=== PATIENT | male | born 1980 | race Caucasian/White ===

== ENCOUNTER 2019-08-16 10:09 | Inpatient (IN) ==
[2019-08-16] MEDS ORDERED: PNEUMOVAX 23 IM ONE (12:30)
[2019-08-16 12:49] LABS: BASO# 0.06 X1000 (0.0-0.2); BASO% 0.6 % (0.0-0.8); EOS# 0.22 X1000 (0.0-0.7); EOS% 2.3 % (0.0-10.0); HEMATOCRIT 40.8 % (42.0-52.0); IMM GRAN# 0.02 X1000 (0.0-0.04); IMM GRAN% 0.2 % (0.0-0.5); LYMPH# 2.28 X1000 (1.2-3.4); LYMPH% 23.8 % (20.5-51.1); MCH 32.2 PG (27-31); MCHC 34.3 g/dL (33-37); MCV 93.8 FL (81-99); MONO# 0.86 X1000 (0.11-0.59); MPV 9.3 FL (7.4-10.4); NEUT# 6.12 X1000 (1.4-6.5); NEUT% 64.1 % (42.2-75.2); PLT 354 X1000 (130-400); RBC 4.35 XMIL (4.7-6.1); RDW 12.5 % (11.5-14.5); WBC 9.56 X1000 (4.8-10.8)
[2019-08-16 13:05] LABS: AGAP 13; ALB/GLOB RATIO 1.3; ALBUMIN 4.2 g/dL (3.5-5.0); ALKALINE PHOSPHATASE 73 U/L (32-122); BUN 8 mg/dL (8-22); CALCIUM 9.5 mg/dL (8.8-10.2); CHLORIDE 94 mmol/L (98-107); COSMO 261; CREATININE 0.7 mg/dL (0.7-1.2); ESTIMATED GFR > 60; GLUCOSE 102 mg/dL (70-104); GOT 13 U/L (10-34); GPT 11 U/L (10-44); SODIUM 131 mmol/L (136-145); TCO2 24 mmol/L (25-35); TOTAL BILIRUBIN 0.61 mg/dL (0.20-1.00); TOTAL PROTEIN 7.5 g/dL (6.3-8.3)
[2019-08-16] MEDS ORDERED: ZOFRAN IV PRN (13:12)
[2019-08-16] MEDS ORDERED: STERILE WATER INJ. ONE (13:43)
[2019-08-16] MEDS: PROTONIX IV SCH ×2 (14:46→15:12)
[2019-08-16] MEDS: SODIUM CHLORIDE 0.9% INJ SCH ×2 (14:47→15:12)
--- NOTE | 2019-08-16 15:04 | Diag Imaging Result Doc PS360 ---
HIDA SCAN W/ EJECTION FRACTION - 08/16/2019 INDICATION: ruq pain COMPARISON: Ultrasound from 08/15/2019 FINDINGS: 5.5 millicuries of Choletec was administered. There is normal uptake and clearance by the liver. There is normal excretion into the gallbladder and small bowel. A fatty meal was given. The gallbladder ejection fraction is 66%. IMPRESSION: Negative exam. An abnormally low ejection fraction (less than 35%) can be present in patients without gallbladder dyskinesis or chronic cholelithiasis to have other medical conditions. These include but are not limited to, patients with diabetic mellitus, irritable bowel syndrome, , gastroenteritis. peptic ulcer disease, and patients receiving morphine or nifedipine. Electronically signed by Albert Nails 08/16/2019 3:02 PM
[2019-08-16] MEDS: KEFZOL 1 GM/D5W 1 GM/50 ML IVPB IV SCH ×3 (15:12→23:22)
--- NOTE | 2019-08-16 15:17 | Diag Imaging Result Doc PS360 ---
EXAM: CHEST-PORTABLE - 08/16/2019 HISTORY: abdominal pain TECHNIQUE: Portable chest COMPARISON: None. FINDINGS: Heart size is normal. There are apparent mild COPD changes. There is a right lower lung granuloma from old granulomatous disease. The lungs appear to be clear of acute changes. There is no pleural effusion or pneumothorax identified. There is thoracic levoscoliosis noted. IMPRESSION: Apparent mild COPD changes. No evidence of acute disease. Electronically signed by Thien [employer] 08/16/2019 3:15 PM
[2019-08-16] MEDS: D5 1/2 NS 1,000 ML IV SCH (15:34)
[2019-08-16] MEDS: NICODERM PATCH TD SCH (15:35)
[2019-08-16] MEDS: MORPHINE IV PRN ×4 (15:38→23:12)
[2019-08-17] MEDS: MORPHINE IV PRN ×6 (01:41→23:01)
[2019-08-17] MEDS: D5 1/2 NS 1,000 ML IV SCH (01:44)
[2019-08-17] MEDS: KEFZOL 1 GM/D5W 1 GM/50 ML IVPB IV SCH ×3 (06:02→23:07)
[2019-08-17] MEDS ORDERED: QUELICIN (DOSE) ONE (06:31)
[2019-08-17] MEDS: NICODERM PATCH TD SCH (08:26)
[2019-08-17] MEDS ORDERED: VERSED ONE (11:23)
[2019-08-17] MEDS ORDERED: SODIUM CHLORIDE 0.9% ONE (11:41)
[2019-08-17] MEDS ORDERED: MARCAINE 0.25% PF/EPI 1:200,000 ONE (11:41)
[2019-08-17] MEDS ORDERED: LR 1,000 ML ONE (11:42)
[2019-08-17] MEDS ORDERED: ZOFRAN IV PRN (13:24)
[2019-08-17] MEDS ORDERED: D5 1/2 NS 1,000 ML IV SCH (14:00)
--- NOTE | 2019-08-17 14:04 | OPERATIVE NOTE ---
PROCEDURE DATE: 08/17/2019 PREOPERATIVE DIAGNOSES: Acute abdomen and possible acute cholecystitis. POSTOPERATIVE DIAGNOSES: Acute abdomen with anterior perforated duodenal ulcer. PROCEDURE: Laparoscopy with laparotomy with over-sew perforated duodenal ulcer with Félix patch. PROCEDURE: The patient was brought to the operating room. After satisfactory induction of IV and endotracheal anesthesia, athrombic TEDs were placed. His abdomen was broadly prepped and draped in the appropriate manner for laparoscopy. Initially, the infraumbilical area was infiltrated with 0.25% Marcaine with epinephrine. Dissection was taken sharply down through skin and subcutaneous tissue. Fascia was tacked with 0 Surgilon and incised. Under direct visualization, a Primitivo trocar was placed. The abdomen was insufflated to 3-1/2 L of carbon dioxide. Again, after infiltration with Marcaine and epinephrine, one 10 and two 5 mm trocars were placed across the right epigastrium. Inspection revealed a little bit of purulence around the gallbladder itself with omental adhesions. On freeing up these adhesions, there was seen to be a small anterior perforation of the duodenum. Attempts at laparoscopic suture placement for over-sew of the ulcer were unsuccessful. For this reason, the laparoscopy was completed. The trocars were removed. A subxiphoid to umbilical incision midline incision was taken sharply down through skin and subcutaneous tissue. Fascia was incised in the midline. The peritoneum was entered. The viscera were packed away. Where the gallbladder had been grabbed, there was no evidence of full- thickness perforation of the gallbladder itself. The ulcer itself was isolated and over sewed with interrupted 0 Surgilon with tacking down of a piece of freed up omentum for a Félix patch. On completion, there was no evidence of further leakage. The wound was subsequently aspirated away and after accounting for all laparotomy sponges, closure was initiated. The infraumbilical incision underwent fascial closures of 0 Surgilon. The midline incision underwent peritoneal closure with #1 Vicryl, the fascia closure with interrupted #1 Maxon. The layers were irrigated with Betadine on exiting the abdomen. The skin incisions were closed with stainless steel clips. Sterile dressings were applied. Nasogastric tube had been palpated in the stomach prior to closure. Estimated blood loss was approximately 25 mL. Patient will be maintained in the hospital with nasogastric suction with planned fluoroscopy studies to rule out leak in 4 days' time. cc: Iisdro Driscoll MD
[2019-08-17] MEDS: SODIUM CHLORIDE 0.9% INJ SCH (14:50)
[2019-08-17] MEDS: PROTONIX IV SCH (14:50)
[2019-08-17] MEDS: ATIVAN IV PRN (20:29)
[2019-08-17] MEDS: PERIDEX MT SCH (20:35)
[2019-08-18] MEDS: D5 1/2 NS 1,000 ML IV SCH ×6 (00:31→20:35)
[2019-08-18] MEDS: SODIUM CHLORIDE 0.9% INJ SCH ×2 (00:33→18:17)
[2019-08-18] MEDS: PROTONIX IV SCH ×2 (00:34→18:17)
[2019-08-18] MEDS: MORPHINE IV PRN ×4 (02:12→20:47)
[2019-08-18] MEDS: ATIVAN IV PRN ×3 (02:12→18:18)
[2019-08-18] MEDS: KEFZOL 1 GM/D5W 1 GM/50 ML IVPB IV SCH (06:22)
[2019-08-18 06:44] LABS: BASO# 0.01 X1000 (0.0-0.2); BASO% 0.1 % (0.0-0.8); HEMATOCRIT 37.6 % (42.0-52.0); HEMOGLOBIN 12.8 g/dL (14.0-18.0); IMM GRAN# 0.02 X1000 (0.0-0.04); IMM GRAN% 0.2 % (0.0-0.5); LYMPH# 2.29 X1000 (1.2-3.4); LYMPH% 23.5 % (20.5-51.1); MONO# 1.15 X1000 (0.11-0.59); MONO% 11.8 % (1.7-9.3); MPV 9.1 FL (7.4-10.4); NEUT# 6.19 X1000 (1.4-6.5); NEUT% 63.4 % (42.2-75.2); PLT 354 X1000 (130-400); RDW 12.3 % (11.5-14.5); WBC 9.76 X1000 (4.8-10.8)
[2019-08-18 07:16] LABS: AGAP 12; BUN 9 mg/dL (8-22); CALCIUM 9.6 mg/dL (8.8-10.2); CHLORIDE 98 mmol/L (98-107); COSMO 272; CREATININE 0.7 mg/dL (0.7-1.2); ESTIMATED GFR > 60; GLUCOSE 97 mg/dL (70-104); POTASSIUM 3.7 mmol/L (3.5-5.1); SODIUM 137 mmol/L (136-145); TCO2 27 mmol/L (25-35)
[2019-08-18] MEDS: PERIDEX MT SCH ×2 (10:46→20:34)
[2019-08-18] MEDS: NICODERM PATCH TD SCH (10:46)
--- NOTE | 2019-08-18 15:50 | Diag Imaging Result Doc PS360 ---
EXAM: CHEST-PORTABLE HISTORY: NG TUBE re-placement TECHNIQUE: Chest abdomen single view COMPARISON: 08/16/2019 FINDINGS: The lungs are well expanded. The heart is not enlarged. The vessels are not distended. There are no infiltrates. No effusion identified. There is a nasogastric tube in good position overlying the esophagus and stomach. IMPRESSION: Nasogastric tube in good position. Electronically signed by Hermelindo Kumar 08/18/2019 3:47 PM
[2019-08-19] MEDS: MORPHINE IV PRN ×8 (00:19→23:41)
[2019-08-19] MEDS: ATIVAN IV PRN ×4 (00:19→23:41)
[2019-08-19] MEDS: D5 1/2 NS 1,000 ML IV SCH ×4 (00:25→23:45)
[2019-08-19 07:06] LABS: BASO# 0.02 X1000 (0.0-0.2); BASO% 0.2 % (0.0-0.8); EOS# 0.22 X1000 (0.0-0.7); EOS% 2.3 % (0.0-10.0); HEMATOCRIT 43.2 % (42.0-52.0); HEMOGLOBIN 14.9 g/dL (14.0-18.0); LYMPH# 1.14 X1000 (1.2-3.4); LYMPH% 12.1 % (20.5-51.1); MCH 32.7 PG (27-31); MCHC 34.5 g/dL (33-37); MCV 94.7 FL (81-99); MONO# 1.04 X1000 (0.11-0.59); MPV 9.3 FL (7.4-10.4); NEUT% 74.4 % (42.2-75.2); PLT 389 X1000 (130-400); RBC 4.56 XMIL (4.7-6.1); RDW 12.7 % (11.5-14.5); WBC 9.42 X1000 (4.8-10.8)
[2019-08-19 07:32] LABS: AGAP 16; BUN 20 mg/dL (8-22); CALCIUM 10.4 mg/dL (8.8-10.2); CHLORIDE 92 mmol/L (98-107); COSMO 275; CREATININE 0.9 mg/dL (0.7-1.2); ESTIMATED GFR > 60; GLUCOSE 103 mg/dL (70-104); POTASSIUM 3.2 mmol/L (3.5-5.1); SODIUM 136 mmol/L (136-145); TCO2 28 mmol/L (25-35)
[2019-08-19] MEDS: NICODERM PATCH TD SCH (09:05)
[2019-08-19] MEDS: PERIDEX MT SCH ×4 (09:05→21:19)
--- NOTE | 2019-08-19 10:12 | Diag Imaging Result Doc PS360 ---
EXAM: CHEST-PORTABLE - 08/19/2019 HISTORY: post op TECHNIQUE: Portable chest COMPARISON: 08/18/2019 FINDINGS: Heart size is normal. There are stable right lower lung granuloma from old granulomatous disease. The lungs otherwise appear clear. There is no pleural effusion or pneumothorax identified. There is a nasogastric tube which can be followed to the mid stomach. There is a small amount of free intraperitoneal air beneath the hemidiaphragms consistent with recent abdominal surgery. IMPRESSION: No evidence of acute disease. Electronically signed by Thien Hand 08/19/2019 10:09 AM
[2019-08-19] MEDS: SODIUM CHLORIDE 0.9% INJ SCH (14:46)
[2019-08-19] MEDS: PROTONIX IV SCH (14:46)
[2019-08-20] MEDS: MORPHINE IV PRN ×5 (04:44→23:48)
[2019-08-20] MEDS: ATIVAN IV PRN ×2 (05:10→13:12)
[2019-08-20] MEDS: D5 1/2 NS 1,000 ML IV SCH ×3 (07:54→23:41)
[2019-08-20] MEDS: NICODERM PATCH TD SCH (09:38)
[2019-08-20] MEDS: PERIDEX MT SCH ×2 (09:38→23:40)
[2019-08-20] MEDS: PROTONIX IV SCH ×2 (13:13→18:52)
[2019-08-20] MEDS: SODIUM CHLORIDE 0.9% INJ SCH ×2 (13:13→18:52)
[2019-08-21] MEDS: D5 1/2 NS 1,000 ML IV SCH ×2 (01:54→06:56)
[2019-08-21 06:43] LABS: BASO# 0.07 X1000 (0.0-0.2); BASO% 0.5 % (0.0-0.8); EOS# 0.22 X1000 (0.0-0.7); EOS% 1.5 % (0.0-10.0); HEMATOCRIT 45.5 % (42.0-52.0); IMM GRAN# 0.02 X1000 (0.0-0.04); IMM GRAN% 0.1 % (0.0-0.5); LYMPH# 2.64 X1000 (1.2-3.4); LYMPH% 17.8 % (20.5-51.1); MCH 32.1 PG (27-31); MCHC 35.2 g/dL (33-37); MCV 91.4 FL (81-99); MONO# 1.61 X1000 (0.11-0.59); MONO% 10.8 % (1.7-9.3); MPV 9.3 FL (7.4-10.4); NEUT# 10.29 X1000 (1.4-6.5); NEUT% 69.3 % (42.2-75.2); PLT 478 X1000 (130-400); RBC 4.98 XMIL (4.7-6.1); RDW 12.4 % (11.5-14.5); WBC 14.85 X1000 (4.8-10.8)
--- NOTE | 2019-08-21 06:47 | Diag Imaging Result Doc PS360 ---
EXAM: CHEST-1 VIEW HISTORY: s/p perf ulcer repair TECHNIQUE: Single view COMPARISON: 08/19/2019 FINDINGS: The lungs are well expanded. The heart is not enlarged. The vessels are not distended. No change in the nasogastric tube. This enters the stomach. There are no infiltrates. No effusion identified. IMPRESSION: Negative exam. Electronically signed by Hermelindo Kumar 08/21/2019 6:44 AM
[2019-08-21 07:10] LABS: AGAP 14; BUN 45 mg/dL (8-22); CALCIUM 10.5 mg/dL (8.8-10.2); CHLORIDE 84 mmol/L (98-107); COSMO 274; ESTIMATED GFR > 60; GLUCOSE 127 mg/dL (70-104); POTASSIUM 3.4 mmol/L (3.5-5.1); SODIUM 130 mmol/L (136-145); TCO2 32 mmol/L (25-35)
--- NOTE | 2019-08-21 09:55 | Diag Imaging Result Doc PS360 ---
EXAM: GI SERIES WITH BA SWALLOW INDICATION: hx of perforated duodenal ulcer TECHNIQUE: 60 mL of Gastrografin contrast was injected via the patient's NG tube under fluoroscopy and spot images were obtained. COMPARISON: None. FINDINGS: There was normal filling of the stomach and duodenum with contrast. No abnormal contrast extravasation is identified from the stomach or the duodenum to indicate perforation. There is no evidence of duodenal stricture. There is no evidence of obstruction. No discrete filling defects are identified in the stomach or duodenum. IMPRESSION: No abnormal contrast extravasation to indicate perforation. Electronically signed by Sean Wolfe 08/21/2019 9:53 AM
[2019-08-21] MEDS: MORPHINE IV PRN ×2 (10:53→13:03)
[2019-08-21] MEDS: PERIDEX MT SCH ×2 (10:58→20:57)
[2019-08-21] MEDS: NICODERM PATCH TD SCH ×2 (10:58→11:02)
[2019-08-21] MEDS: PROTONIX IV SCH (15:30)
[2019-08-21] MEDS: SODIUM CHLORIDE 0.9% INJ SCH (15:30)
[2019-08-21] MEDS ORDERED: ZOFRAN PO SCH (23:45)
[2019-08-21] MEDS ORDERED: HALCION PO ONE (23:55)
[2019-08-21] MEDS ORDERED: NORCO-10 PO PRN (23:55)
[2019-08-21] MEDS ORDERED: ATIVAN PO ONE (23:55)
[2019-08-22] MEDS: D5 1/2 NS 1,000 ML IV SCH (00:03)
[2019-08-22] MEDS ORDERED: ZOFRAN PO PRN (00:05)
[2019-08-22] MEDS: PRILOSEC PO SCH ×2 (00:33→07:31)
[2019-08-22 07:59] LABS: BASO# 0.06 X1000 (0.0-0.2); BASO% 0.6 % (0.0-0.8); EOS# 0.44 X1000 (0.0-0.7); EOS% 4.6 % (0.0-10.0); HEMATOCRIT 44.1 % (42.0-52.0); HEMOGLOBIN 15.2 g/dL (14.0-18.0); IMM GRAN# 0.02 X1000 (0.0-0.04); IMM GRAN% 0.2 % (0.0-0.5); LYMPH# 2.95 X1000 (1.2-3.4); LYMPH% 31.1 % (20.5-51.1); MCH 31.9 PG (27-31); MCHC 34.5 g/dL (33-37); MCV 92.6 FL (81-99); MONO# 1.35 X1000 (0.11-0.59); MONO% 14.2 % (1.7-9.3); MPV 9.3 FL (7.4-10.4); NEUT# 4.66 X1000 (1.4-6.5); NEUT% 49.3 % (42.2-75.2); PLT 460 X1000 (130-400); RBC 4.76 XMIL (4.7-6.1); RDW 12.3 % (11.5-14.5); WBC 9.48 X1000 (4.8-10.8)
[2019-08-22 08:24] VITALS: BP 124/66
[2019-08-22] MEDS: NICODERM PATCH TD SCH (08:48)
[2019-08-22] MEDS: PERIDEX MT SCH (08:48)
== END 2019-08-22 09:31 | disposition home or self-care (01) | DRG 328 ==
LOC: DIRADM → OBSVTOIN 10:09 → 4N 10:22
PROVIDERS: ADMIT Surgery; ATTEND Surgery